=== PATIENT | male | born 1965 | race Caucasian/White ===

== ENCOUNTER 2024-09-30 17:18 | Outpatient (CLI) | payer SELFPAY ==
--- NOTE | ~2024-09-30 | XR_ITS ---
HISTORY: M19.012 - Primary osteoarthritis, left shoulder COMPARISON: 03/18/2024 TECHNIQUE: 4 views of the left shoulder were performed FINDINGS: No acute fracture. Significant joint space narrowing and sclerosis is identified within the glenohumeral and acromioclav icular joints. Rounded foci of increased density are identified within the mediastinum, at the level of the right hi lum, possibly calcified lymph nodes. The remainder of the visualized portion of the adjacent chest is unremarkable. The humeral head is well seated within the glenoid fossa. IMPRESSION: Significant degenerative disease, without acute fracture or anterior dislocation. Reviewed, dictated and finalized at location A. WIRE DRAWER IMPRESSION: Significant degenerative disease, without acute fracture or anterior dislocatio n.
== END 2024-09-30 17:19 | disposition home or self-care (01) ==
PROVIDERS: Visit Provider Orthopaedic Surgery
DX: M19.012 Primary osteoarthritis, left shoulder (principal)
CPT/HCPCS: 73030

== ENCOUNTER 2025-02-17 10:04 | Outpatient (CLI) | payer SELFPAY ==
[2025-02-17 11:16] LABS: Basophils Absolute Auto 0.1 K/mm3 (0.0-0.1); Basophils Percent Auto 0.7 % (0.2-1.2); Eosinophils Absolute Auto 0.2 K/mm3 (0-0.3); Eosinophils Percent Auto 3.3 % (0-4.4); Hematocrit 44.7 % (42.0-52.0); Hemoglobin 14.4 g/dL (14.0-18.0); Immature Granulocyte Absolute 0.03 K/mm3 (0.00-0.031); Immature Granulocyte Percent A 0.4 % (0-0.5); Lymphocytes Absolute Auto 1.76 K/mm3 (0.9-3.2); Lymphocytes Percent Auto 24.2 % (18.3-44.2); Mean Corpuscular HGB Conc 32.2 g/dl (32-36); Mean Corpuscular Hemoglobin 29.3 pg (26-34); Mean Platelet Volume 10.2 fl (7.4-10.4); Monocytes Absolute Auto 0.7 K/mm3 (0.1-0.6); Neutrophils Absolute Auto 4.5 K/mm3 (1.3-6.7); Neutrophils Percent Auto 62.4 % (45.5-73.1); Platelet Count Result 326 k/mm3 (150-375); Red Blood Count 4.91 M/mm3 (4.6-6.20); Red Cell Distribution Width 13.7 % (11.5-14.5); White Blood Count 7.3 K/mm3 (4.5-10.0)
--- OUTSIDE RECORDS SUMMARY | 2025-02-17 11:24 | XMS_ITS | Clinical Summary ---
Author Organization [facility] Address [address] [place] [address] Care Team Providers Care Paper Sheeter Name Role Phone Oscar Dsouza MD Primary Care Provider +1- [phone] Allergies Active Allergy Reactions Criticality Noted Date Comments Latex Unknown 07/20/2024 Medications lisinopril (PRINIVIL) 10 MG tablet Take 1 tablet (10 mg total) by mouth daily. Active rosuvastatin (CRESTOR) 5 MG tablet Take 1 tablet (5 mg total) by mouth nightly at bedtime. Active metoprolol succinate ER (TOPROL-XL) 25 MG 24 hr tablet Take 0.5 tablets (12.5 mg total) by mouth 2 (two) times a day. Active Active Problems Problem Noted Date Diagnosed Date Palpitations Essential (primary) hypertension Family History Medical History Relation Comments CABG Father [place] Father No Known Problems Mother Relation Status Comments Father Mother Social History Tobacco Use Types Packs/Day Years Used Date Smoking Tobacco: Never Smokeless Tobacco: Never Tobacco Cessation:Counseling Given: Not Answered Alcohol Use Standard Drinks/Week Comments Never 0 (1 standard drink = 0.6 oz pur e alcohol) Sex and Gender Information Value Date Recorded Sex Assigned at Not on file Legal Sex Male 7:33 PM CDT Gender Identity Not on file Sexual Orientation Not on file Last Filed Vital Signs Vital Sign Reading Time Taken Comments Blood Pressure 132/80 07/23/2024 10:09 AM CDT Pulse 78 07/23/2024 10:09 AM CDT Temperature - - Respiratory Rate - - Oxygen Saturation 98% 07/23/2024 10:09 AM CDT Inhaled Oxygen Concentration - - Weight 102.5 kg (226 lb) 07/23/2024 10:09 AM CDT Height 190.5 cm (6' 3 ) 07/23/2024 10:09 AM CDT Body Mass Index 28.25 07/23/2024 10:09 AM CDT Plan of Treatment Upcoming Encounters Date Type Department Care Team (Late st Contact Info) Description 07/22/2025 9:45 AM CDT Office Visit [facility], [address] [place], [place] [id number] Sascha De Souza MD Three [facility]. [address] [place], [place] [id number] Health Maintenance Due Date Last Done Comments Colorectal Cancer Screening Colonoscopy (10 Years) 1963 Annual Physical 1966 Hepatitis C 1981 DTaP, Tdap and Td Vaccines ( 1 - Tdap) 1982 Zoster Vaccines (1 of 2) 2013 COVID-19 Vaccine (3 - 2023-2 5 season) 2024 02/28/2021, 01/10/2021 Influenza Adult (#1) 2024 RSV Immunization or 60+ Years (1 - 1-dose 75+ series) 2038 Meningococcal B Vaccine Aged Out No l onger eligible based on patient's age to complete this topic Meningococcal Vaccine Aged Out No janell aldo eligible based on patient's age to complete this topic Pneumococcal Vaccine: Pediatrics (0 to 5 Years) and At-Risk Patients (6 to 64 Years) Aged Out No longer eligible b ased on patient's age to complete this topic RSV Immunizations Under 20 Months Aged Out No longer eligible b ased on patient's age to complete this topic Advance Directives Documents on File Type Date Recorded Patient Machine Tool Rebuilder Expl anation Advance Directives and Livin g Will 10/19/2016 POWER OF HEEL COVER SOFTENER Advance Directives and Livin g Will 10/19/2016 Care Teams Paper Sheeter Relationship Specialty Start Date End Date Oscar Dsouza MD [address] [place] [address] PCP - General FAMILY PRACTICE 06/24/24
[2025-02-17 12:27] LABS: MRSA (PCR) NOT DETECTED (NOT DETECTE)
== END 2025-02-17 10:05 | disposition home or self-care (01) ==
PROVIDERS: Visit Provider Orthopaedic Surgery
DX: M19.012 Primary osteoarthritis, left shoulder (principal)
CPT/HCPCS: 36415; 85025; 87641

== ENCOUNTER 2025-03-18 03:27 | Day surgery (SDC) | payer SELFPAY ==
[2025-02-17 09:27] VITALS: BP 146/90; PULSE 69; RESP 16; TEMP 36.9; O2SAT 100
[2025-02-17 10:28] VITALS: BMI 29.5
--- NOTE | 2025-02-17 10:41 | PC.NURSE ---
Report to the Outpatient Waiting Room, entrance under the green pavilion located off [facility], at time __6:00AM on date ____03/18/25___. Planned Procedure Time: ___7:30AM .? Time changes happen often and if your time is changed the preop area will call you the afternoon before. - You and your visitor will be asked to self-screen and do not enter if you have any COVID symptoms. Please call surgeon if you need to reschedule. - A mask is optional within the hospital at this time. Patients may have clear liquids (water, carbonated beverages, clear teas, apple juice) until 3 hours prior to surgery (4:30AM) with a maximum of 20 ounces. - No food from midnight until time of surgery and no smoking, or chewing tobacco (or any form of nicotine). No chewing gum, candy or mints. Take only the following medications with a SIP of water on the morning of surgery: NONE DO NOT STOP ANY OF YOUR OTHER PRESCRIPTION MEDICATIONS PRIOR TO SURGERY EXCEPT THE FOLLOWING Hold all vitamins and supplements for 3 days per anesthesiologist.- LAST DOSE 03/14/25 Medications to discontinue per physician ___HOLD NSAIDS (DICLOFENAC) 7 DAYS PRE-OP PER DR BAXTER Date to take last dose 03/10/25 Please no make-up, nail korean, hairspray, perfume, deodorant, or body powder the day of surgery.? No jewelry (including any body piercings) or valuables the day of surgery, leave them at home.? Please take a shower or bath the night before, or the morning of, surgery with an antibacterial soap.? Wear comfortable, loose fitting clothing.? - Jewelry must be removed prior to entering the operating room.? Rings and piercings that are not removed may be cut off. - The hospital will not accept responsibility for valuables.? - Please leave all valuables, including medications, at home the day of surgery. If you are going home after surgery, a licensed hazmat cdl driver must drive you home.? - NO public transportation without another adult if you receive anesthesia. - We recommend that an adult stay with you for 24 hours following discharge. - We also recommend that you do not drive, make important decision, drink alcoholic beverages, or take any drugs that were not prescribed by your health care provider for at least 24 hours after your discharge time. Follow any additional instructions given to you from your surgeon. Telephone instructions given to ____PATIENT AND WIFE and asked if any additional questions and then verbalized understanding. Patient advised to call surgeon office or pre surgery nurse liaison [phone] if any additional questions.
[2025-03-18] VITALS (15 sets, daily range): BP systolic 111–156; BP diastolic 71–98; PULSE 80–109; RESP 10–18; TEMP 36–37.1; O2SAT 93–98; BMI 28.3
--- NOTE | ~2025-03-18 | XR_ITS ---
XR shoulder LT min 2V Ordering provider: Chauncey Leblanc MD History: . POST-OP, LEFT TOTAL SHOULDER . Comparison: None. FINDINGS: BONES: No acute fracture or dislocation. JOINT SPACES: The acromioclavicular joint is normal. The glenohumeral joint shows arthroplasty. SOFT TISSUES: Normal. IMPRESSION: No acute osseous abnormality left shoulder. Left glenohumeral arthroplasty. Reviewed, dictated and finalized at location A.
--- OUTSIDE RECORDS SUMMARY | 2025-03-18 03:37 | XMS_ITS | Clinical Summary ---
Author Organization [facility] Address [address] [place] [address] Care Team Providers Care Laborer Carpentry Dock Name Role Phone Oscar Dsouza MD Primary Care Provider +1- [phone] Allergies Active Allergy Reactions Criticality Noted Date [...] History Medical History Relation Comments CABG Father [place] Father No Known Problems Mother Relation Status [...] CDT Office Visit [facility], [address] [place], [place] [phone] Sascha De Souza MD Three [facility]. [address] [place], [place] [phone] Health Maintenance Due Date Last Done Comments Colorectal Cancer Screening Colonoscopy (10 Years) 1963 Annual Physical 1966 Hepatitis C 1981 DTaP, Tdap and Td Vaccines ( 1 - Tdap) 1982 Pneumococcal Vaccine: 50+ Years (1 of 1 - PCV) 2013 Zoster Vaccines (1 of 2) 2013 COVID-19 Vaccine (3 - 2023-2 5 season) 2024 02/28/2021, 01/10/2021 RSV Immunization or 60+ Years (1 - [...] Documents on File Type Date Recorded Patient Interactive Graphic Designer Expl anation Advance Directives and Livin g Will 10/19/2016 POWER OF RUBBER WORKER Advance Directives and Livin g Will 10/19/2016 Care Teams Laborer Carpentry Dock Relationship Specialty Start Date End Date Oscar Dsouza MD [address] [facility] [address] [place] [address] PCP - General FAMILY PRACTICE 06/24/24
--- NOTE | 2025-03-18 06:52 | WPDANESEPPF ---
Anes - Initial Pre Proc Eval Procedure: Operation Date: 03/18/25 07:30 Proposed Procedures p Left Anatomic Total Shoulder Arthroplasty - Chauncey Leblanc MD Date/Time: 03/18/25 06:52 Surgeon: Chauncey Leblanc MD Pre Op Diagnosis: primary OA left shoulder Patient Data Age: 59 Gender: M Height: 1.91 m Weight: 107 kg Last Vital Signs Temp 36.9 C 02/17/25 09:27 Pulse 69 02/17/25 09:27 Resp 16 02/17/25 09:27 BP 146/90 H 02/17/25 09:27 Pulse Ox 100 02/17/25 09:27 O2 Del Method Room Air 02/17/25 09:27 Allergies Allergy/AdvReac Type Severity Reaction Status Date / Time Latex, Natural Rubber Allergy Unknown RASH, Verified 03/18/25 06:45 IRRITATED THROAT Home Medications ?Medication ?Instructions ?Recorded ?Confirmed ?Type lisinopril 10 mg tablet 10 mg PO BID 02/20/24 03/18/25 History RENAVIVE 1 cap PO DAILY 02/17/25 02/18/25 History SUPER BEETS 1 cap PO DAILY 02/17/25 03/18/25 History diclofenac sodium 1 % topical gel 4 g topical BID PRN pain 02/17/25 02/18/25 History (Voltaren Arthritis Pain) metoprolol succinate 25 mg 25 mg PO HS 02/17/25 03/18/25 History tablet,extended release 24 hr rosuvastatin 5 mg tablet 5 mg PO HS 02/17/25 03/18/25 History saw palmetto 500 mg capsule 500 mg PO DAILY 02/17/25 03/18/25 History Patient hx anesthesia problems: none Family hx anesthesia problems: none Results Review: All pre-operative results and documents have been reviewed as part of the pre-operative evaluation. [facility] Past Medical History Medical History History of postoperative nausea and vomiting Hyperlipemia Ureteral stone Hypertension Surgical History Surgical History History of laparoscopic cholecystectomy (~10/19/16) History of arthroscopy of right knee (~2004) History of lithotripsy ECSW Lithotripsy w/Ureteral Stent Placement Family History Family History Father Coronary artery disease Social History Social History Smoking status: Never smoker Alcohol intake: never Substance use: never Do You Feel Safe in your Home?: Yes Lack of Transportation: No Lack of Food: Never True Current Housing: I Have Housing Concerned About Future Housing: No Difficulty Paying Gas/Electric Bills: No Difficulty Paying for Meds: No Currently Unemployed: No Education: Bachelor's Degree Difficulty w/ Childcare or Family Care: No Living arrangements: with family Additional living arrangements comments: Spiritual care concerns: No Anes - Eval Final PreProcedure Day of Procedure 03/18/25 06:52 Patient weight: overweight Heart: regular rate and rhythm Lungs: clear to auscultation Airway: Mallampati scale class II Neurological: alert and oriented Last oral intake: >/= 8 hours ASA classification: II Emergent: no Anesthetic plan: proceed Anesthesia type and monitoring: general ETT and standard monitoring Results Review: All pre-operative results and documents have been reviewed as part of the pre-operative evaluation. Informed Consent: The patient's anesthetic plan and its attendant risks and benefits were discussed with the patient/family/POA. Questions were solicited and answers provided to the satisfaction of the patient/family/POA.
--- NOTE | 2025-03-18 06:59 | WPDHPUPDATE1 ---
History and Physical Update Update Date/Time: 03/18/25 06:59 History and Physical has been reviewed, including an updated exam of the patient. There are NO changes in the patient's condition. Risks, benefits, and alternatives have been discussed and questions answered. Patient agrees to proceed with procedure.
[2025-03-18] MEDS: LACTATED RINGERS 1,000 ML 30 ML IV CONT ×2 (07:12→10:55)
[2025-03-18] MEDS: ACETAMINOPHEN 500 MG TABLET 1000 MG PO (07:12)
[2025-03-18] MEDS: TRANEXAMIC ACID 1,000MG/ISO100 1,000 MG/100 ML BAG 200 MG IVPB (07:12)
[2025-03-18] MEDS: SCOPOLAMINE 1 MG PATCH 1 PATCH TRANSDERM (07:21)
--- NOTE | 2025-03-18 07:28 | WPDANESPNB ---
Anes - Peripheral Nerve Block Date/Time: 03/18/25 07:28 I have discussed with the patient/family/POA the placement of a peripheral nerve block for post-operative pain management, including associated risks, benefits, complications, and side effects. Alternative methods of post-operative analgesia were detailed. Questions were solicited and answers provided to the satisfaction of the patient/family/POA. Time-Out: A pre-procedural Time-Out was completed immediately before starting the procedure and confirmed: Patient Identification, Site, Procedure, Patient Position and the Availability of Requisite Equipment. Clinical Indications: Acute post-operative pain management requested by the operative surgeon. Nerve Block Insertion Note Anes-nerve block: interscalene left Patient position: supine Skin prep: chlorhexidine Needle: 22 gauge, stimulating, insulated echogenic needle. Needle length: 50 mm Technique: ultrasound Injectate: bupivacaine 0.5% with epi 5 mcg/ml (30cc no epi) Observations: tolerated well Complications: none Procedure start time:: 714 Procedure end time:: 724
[2025-03-18] MEDS: ceFAZolin 2 GM/D5W 50 ML 2 GM/50 ML BAG IVPB ×3 (07:30→23:11)
[2025-03-18] MEDS: SODIUM CHLORIDE 0.9% IV 37.7 ML, MORPHINE SULFATE INJ (*CRX) 2 MG, ROPivacaine HCL 1% 2... INFILTRATE (08:26)
[2025-03-18] MEDS: VANCOMYCIN HCL 1,000 MG VIAL 1000 MG TOPICAL (08:52)
--- NOTE | 2025-03-18 10:19 | P.OP_ITS ---
Procedure Note - Detailed Date of Procedure 03/18/25 Pre-op Diagnosis Primary OA left shoulder Post-op Diagnosis Same Procedure Performed Anatomic total shoulder arthroplasty, left. Surgeon Chauncey Leblanc MD Wholesale Loan Processor Eleanor Nixon PA-C Anesthesia General Findings Stemless arthroplasty with inset glenoid. Excellent bone quality. No contracture. Sized line to line with the 48mm x 18mm for optimum soft tissue tension without instability (the 46 was markedly lax). The lesser tuberosity osteotomy was repaired with vazquez bone tunnel suture repair. The biceps was tenodesed to the pectoralis and proximal soft tissue. There was no significant glenoid wear. The inset glenoid component was placed slightly superior, and with subtle declination, where imaging and anatomy indicated ideal humeral head contact. Description of Procedure Preoperative antibiotics were given. An interscalene block placed in the holding area. The patient was brought to the operating room and a general anesthetic was administered. He was carefully placed in the chair position. Head and neck, and bony prominences were carefully padded and positioned. The shoulder was prepped and draped in the usual sterile fashion. A longitudinal incision was created over the deltopectoral interval. The cephalic vein was identified and protected. It was retracted medially. The biceps was released and later tenodesed to the pectoralis tendon.The upper border of the pectoralis tendon was not released. A lesser tuberosity osteotomy was created with osteotomes. It was tagged for later repair. The inferior capsule was exposed and the humeral head was delivered into the wound. An anatomic head cut was taken utilizing the x-ray internal alignment jig. The cut protector was placed and attention was turned to the glenoid. For both humeral ligament was released. The anterior capsule partially excised superiorly and released inferiorly. The glenoid was excised along with the biceps. The capsule was released inferiorly including the triceps attachment. Posterior capsular release was not performed due to the lack of contracture. Anatomic landmarks on the glenoid were identified and the drill guide was placed slightly superior to match the anticipated humeral articulating area. The guide pin was placed followed by the one-step reaming to approximately 2-3 mm depth. The superior and inferior drill was used for the pegs. The bone was irrigated and prepared. The real component was cemented into position. Excess cement was carefully removed. Attention was turned back to the humerus. The opening reamer was placed followed by the 0 broach. Trialing was performed. The 46 felt very loose and appeared slightly undersized. The lesser tuberosity osteotomy was drilled 4 times and a Montanez suture Passer was used to pass a #2 Ethibond suture shuttle. The real implant was inserted with excellent Press-Fit. Four #5 Ethibond modified Juan-Sonny sutures from the lesser tuberosity osteotomy were shuttled laterally. The osteotomy was returned to its anatomic position and secured. Supplemental #1 Vicryl suture was placed in the rotator interval laterally. The wound was irrigated. 1 g of vancomycin power was introduced into the wound. The deltopectoral interval was reapproximated with 2-0 Vicryl suture and the remaining skin 2-0 and 3-0 Stratafix suture. Steri-Strips were placed on the skin with a Mepilex bandage. Sling was applied and the patient extubated. An additional pain relieving cocktail was placed in the periarticular tissues during the procedure. Implants Shoulder innovations stemless humeral implant size 0. 48 x 18 mm humeral head. 24 mm diameter circular in line peg inset glenoid component. One batch of quick set antibiotic cement. Estimated Blood Loss 200 Drains No Packing No Pathology None sent Complications No immediate complications Condition Stable Disposition PACU [facility] Billing Surgery - Charge Forward: Surgery Billing
--- NOTE | 2025-03-18 12:35 | ADMGEN ---
This patient, Brandt Pedersen, was admitted to Medical Room 250-01. Patient/family oriented to hospital policies and general routines including ID bracelet, bed and alarms, visiting hours, pain management, procedures, bathroom and other care routines, personal items, smoking policy, room service/diet, and visiting hours. Information on how to activate the Rapid Response Team has been discussed. Patient/Family are encouraged to report perceived risks to care and to ask questions if they do not understand what they are told or what they should do.
[2025-03-18] MEDS: ACETAMINOPHEN 325 MG TABLET 650 MG PO ×3 (12:59→23:14)
[2025-03-18] MEDS: MELOXICAM 7.5 MG TABLET PO (17:04)
[2025-03-18] MEDS: ASPIRIN 81 MG ENTERIC TABLET PO (20:51)
[2025-03-18] MEDS: ROSUVASTATIN 5 MG TABLET PO (20:52)
[2025-03-18] MEDS: METOPROLOL SUCCINATE EXT REL 25 MG TABCR PO (20:52)
[2025-03-18] MEDS: lisinopriL 10 MG TABLET PO (20:52)
[2025-03-18] MEDS: FAMOTIDINE 20 MG TABLET PO (20:53)
[2025-03-19 02:12] VITALS: BP 134/78; PULSE 94; RESP 18; TEMP 37; O2SAT 95
[2025-03-19 05:14] LABS: Basophils Percent Auto 0.2 % (0.2-1.2); Eosinophils Percent Auto 0.2 % (0-4.4); Hematocrit 38.6 % (42.0-52.0); Hemoglobin 12.7 g/dL (14.0-18.0); Lymphocytes Absolute Auto 1.18 K/mm3 (0.9-3.2); Lymphocytes Percent Auto 5.9 % (18.3-44.2); Mean Corpuscular HGB Conc 32.9 g/dl (32-36); Mean Corpuscular Hemoglobin 29.7 pg (26-34); Mean Corpuscular Volume 90.2 fl (80-100); Monocytes Absolute Auto 1.3 K/mm3 (0.1-0.6); Monocytes Percent Auto 6.5 % (2.6-8.5); Neutrophils Absolute Auto 17.2 K/mm3 (1.3-6.7); Neutrophils Percent Auto 86.2 % (45.5-73.1); Platelet Count Result 310 k/mm3 (150-375); Red Blood Count 4.28 M/mm3 (4.6-6.20); Red Cell Distribution Width 14.2 % (11.5-14.5)
[2025-03-19 05:25] LABS: Anion Gap 8 mmol/L (4-12); Blood Urea Nitrogen 16 mg/dL (9-20); Carbon Dioxide 23 mmol/L (22-30); Chloride 107 mmol/L (98-107); Estimated CRCL calculation 84 ml/min; Estimated Glomerular Filt Rate > 60; Glucose 132 mg/dL (65-110); Potassium 4.6 mmol/L (3.4-5.0); Sodium 138 mmol/L (137-145)
[2025-03-19] MEDS: ACETAMINOPHEN 325 MG TABLET 650 MG PO ×2 (06:00→11:41)
[2025-03-19] MEDS: ceFAZolin 2 GM/D5W 50 ML 2 GM/50 ML BAG IVPB (06:03)
[2025-03-19 06:12] VITALS: BP 121/79; PULSE 78; RESP 20; TEMP 36.8; O2SAT 98
[2025-03-19 07:57] VITALS: BP 132/87; PULSE 66; RESP 16; TEMP 36.6; O2SAT 100
[2025-03-19] MEDS: lisinopriL 10 MG TABLET PO (08:42)
[2025-03-19] MEDS: FAMOTIDINE 20 MG TABLET PO (08:42)
[2025-03-19] MEDS: MELOXICAM 7.5 MG TABLET PO (08:42)
[2025-03-19] MEDS: SENNA/DOCUSATE SODIUM TABLET 2 TAB PO (08:42)
[2025-03-19] MEDS: ASPIRIN 81 MG ENTERIC TABLET PO (08:43)
[2025-03-19 10:10] VITALS: BP 124/86; PULSE 76; RESP 18; TEMP 36.8; O2SAT 99
== END 2025-03-19 13:07 | disposition home or self-care (01) ==
LOC: ANHSURGERY 07:14 → ANH2MED 12:45
PROVIDERS: Physician Assistant Surgical; PCP Family Medicine; Visit Provider Orthopaedic Surgery
PROC: (CPT 23472; principal; 2025-03-18 07:30)
DX: M19.012 Primary osteoarthritis, left shoulder (principal); G89.18 Other acute postprocedural pain; I10 Essential (primary) hypertension; E78.5 Hyperlipidemia, unspecified
CPT/HCPCS: 23472; 64415; 36415; 73030; 80048; 85025; 86850; 86900; 86901; 97110; 97161; 97165; 97530; 97535; A4565; A9270; C1713; C1776; J0171; J0690; J1100; J1885; J2250; J2270; J2405; J2704; J2795; J3010; J3370; J7120

== ENCOUNTER 2025-03-21 14:43 | Emergency (ER) | payer SELFPAY ==
--- OUTSIDE RECORDS SUMMARY | 2025-03-21 14:46 | XMS_ITS | Clinical Summary ---
Author Organization [facility] Address [address] [place] [address] Care Team Providers Care Aircrewman Name Role Phone Oscar Dsouza MD Primary Care Provider +1- [phone] Allergies Active Allergy Reactions Criticality Noted Date [...] History Medical History Relation Comments CABG Father [place] Father No Known Problems Mother Relation Status [...] CDT Office Visit [facility], [address] [place], [place] [phone] Sascha De Souza MD Three [facility]. [address] [place], [place] [phone] Health Maintenance Due Date Last Done Comments [...] Documents on File Type Date Recorded Patient Assembler Molded Frames Expl anation Advance Directives and Livin g Will 10/19/2016 POWER OF DERRICK BUILDER Advance Directives and Livin g Will 10/19/2016 Care Teams Aircrewman Relationship Specialty Start Date End Date Oscar Dsouza MD [address] [facility] [address] [place] [address] PCP - General FAMILY PRACTICE 06/24/24
[2025-03-21 14:59] VITALS: BP 128/82; PULSE 102; RESP 18; TEMP 36.5; O2SAT 97
--- OUTSIDE RECORDS SUMMARY | 2025-03-21 15:33 | XMS_ITS | Clinical Summary ---
Author Organization [facility] Address [address] [place] [address] Care Team Providers Care Game Engineer Name Role Phone Oscar Dsouza MD Primary Care Provider +1- [phone] Allergies Active Allergy Reactions Criticality Noted Date [...] History Medical History Relation Comments CABG Father [place] Father No Known Problems Mother Relation Status [...] CDT Office Visit [facility], [address] [place], [place] [phone] Sascha De Souza MD Three [facility]. [address] [place], [place] [phone] Health Maintenance Due Date Last Done Comments [...] Documents on File Type Date Recorded Patient Supervisor Sulfuric Acid Plant Expl anation Advance Directives and Livin g Will 10/19/2016 POWER OF NUTRITIONAL SERVICES DIRECTOR Advance Directives and Livin g Will 10/19/2016 Care Teams Game Engineer Relationship Specialty Start Date End Date Oscar Dsouza MD [address] [facility] [address] [place] [address] PCP - General FAMILY PRACTICE 06/24/24
--- NOTE | 2025-03-21 16:18 | ED_ITS ---
HPI - General Adult General Chief complaint: Skin/Abscess/Foreign Body Stated complaint: rash on arm Time Seen by Provider: 03/21/25 15:24 History of Present Illness HPI narrative: 59-year-old male presents to the emergency department for evaluation for rash to left shoulder after shoulder surgery on 03/18. Patient noticed that he began having this edema associated with the regions of his skin that had been cleansed with the surgical prep. Patient did shower an attempt to clean the skin has good as possible. Patient was attempting to get hold the primary care physician and the orthopedic surgeon but was unable to. Patient presents emergency department for evaluation. Patient denies any chest pain or shortness of breath. Patient denies any difficulty breathing or swallowing. Related Data Home Medications ?Medication ?Instructions ?Recorded ?Confirmed ?Last Taken ?Type lisinopril 10 mg tablet 10 mg PO BID 02/20/24 03/18/25 03/17/25 History RENAVIVE 1 cap PO DAILY 02/17/25 02/18/25 Unknown History SUPER BEETS 1 cap PO DAILY 02/17/25 03/18/25 03/15/25 History diclofenac sodium 1 % topical gel 4 g topical BID PRN pain 02/17/25 02/18/25 Unknown History (Voltaren Arthritis Pain) metoprolol succinate 25 mg 25 mg PO HS 02/17/25 03/18/25 03/17/25 History tablet,extended release 24 hr rosuvastatin 5 mg tablet 5 mg PO HS 02/17/25 03/18/25 03/17/25 History saw palmetto 500 mg capsule 500 mg PO DAILY 02/17/25 03/18/25 03/15/25 History Allergies Allergy/AdvReac Type Severity Reaction Status Date / Time chlorhexidine (From Allergy Severe Rash Verified 03/22/25 09:09 ChloraPrep Clear) isopropyl alcohol (From Allergy Severe Rash Verified 03/22/25 09:09 ChloraPrep Clear) Latex, Natural Rubber Allergy Unknown RASH, Verified 03/18/25 14:02 IRRITATED THROAT Review of Systems Review of Systems: All systems reviewed & are unremarkable except as noted in HPI and below PMFSH Past Medical History Medical History History of postoperative nausea and vomiting Hyperlipemia Ureteral stone Hypertension Surgical History Surgical History History of laparoscopic cholecystectomy (~10/19/16) History of arthroscopy of right knee (~2004) History of lithotripsy ECSW Lithotripsy w/Ureteral Stent Placement Family History Family History Father Coronary artery disease Social History Social History Smoking status: Never smoker Alcohol intake: never Substance use: never Substance use type: does not use Do You Feel Safe in your Home?: Yes Lack of Transportation: No Lack of Food: Never True Current Housing: I Have Housing Concerned About Future Housing: No Difficulty Paying Gas/Electric Bills: No Difficulty Paying for Meds: No Currently Unemployed: No Education: Bachelor's Degree Difficulty w/ Childcare or Family Care: No Living arrangements: with family Additional living arrangements comments: Spiritual care concerns: No Exam Narrative: APPEARANCE: Well appearing, no pain, no distress, well-nourished. HEAD: normocephalic, atraumatic. EYES: PERRLA/EOMI, conjunctivae clear. NOSE: Normal no drainage EARS:TMS clear with good light reflex. THROAT: Pharynx clear, no exudate. NECK: Supple. No adenopathy, no masses. RESPIRATORY: Airway patent, respirations nonlabored. Clear to auscultation bilaterally, no rales, rhonchi, wheezing. CARDIOVASCULAR: Regular rate and rhythm without murmurs rubs or gallops. ABDOMINAL: Soft, nontender, nondistended, normal bowel sounds MUSCULOSKELETAL: Moves all extremities. Strength/ROM intact, No edema, No calf tenderness. NEURO: Alert. Cranial nerves II through XII intact. Good gait. Good coordination SKIN: Erythema with some minor blisters suggestive of contact dermatitis at area of ChloraPrep Course Vital Signs Vital signs: Vital Signs Temperature 97.7 F 03/21/25 14:59 Pulse Rate 102 H 03/21/25 14:59 Respiratory Rate 18 03/21/25 14:59 Blood Pressure 128/82 03/21/25 14:59 Pulse Oximetry 97 03/21/25 14:59 Temperature 97.7 F 03/21/25 14:59 Pulse Rate 102 H 03/21/25 14:59 Respiratory Rate 18 03/21/25 14:59 Blood Pressure 128/82 03/21/25 14:59 Pulse Oximetry 97 03/21/25 14:59 Medical Decision Making [facility] Narrative Medical decision making narrative: 59-year-old male presents emergency department for evaluation for suspected allergic reaction to the ChloraPrep on his left shoulder. Patient was started on a short course of steroids and advised to take Benadryl for itching. Patient was encouraged to have follow-up as scheduled it is primary care physician. Differential Diagnosis Differential Diagnosis: Allergic reaction, contact dermatitis Vital Signs Vital Signs: Vital Signs Temperature 97.7 F 03/21/25 14:59 Pulse Rate 102 H 03/21/25 14:59 Respiratory Rate 18 03/21/25 14:59 Blood Pressure 128/82 03/21/25 14:59 Pulse Oximetry 97 03/21/25 14:59 Temperature 97.7 F 03/21/25 14:59 Pulse Rate 102 H 03/21/25 14:59 Respiratory Rate 18 03/21/25 14:59 Blood Pressure 128/82 03/21/25 14:59 Pulse Oximetry 97 03/21/25 14:59 Discharge Plan Discharge Clinical Impression: Contact dermatitis Patient Disposition: Home Condition: Stable Instructions: Antibiotic Form, Contact Dermatitis (ED) Additional Instructions: Prednisone as directed for the next 5 days. Benadryl as needed for itching. Continue to have close follow-up with your primary care physician tomorrow for a wound check. Have close follow-up with Orthopedics. Patient Language: Mozambican Prescriptions: New prednisone 50 mg tablet 50 mg PO DAILY 5 Days Qty: 5 0RF No Action lisinopril 10 mg tablet 10 mg PO BID metoprolol succinate 25 mg tablet extended release 24 hr 25 mg PO HS rosuvastatin 5 mg tablet 5 mg PO HS SUPER BEETS 1 cap PO DAILY saw palmetto 500 mg capsule 500 mg PO DAILY RENAVIVE 1 cap PO DAILY diclofenac sodium [Voltaren Arthritis Pain] 1 % gel 4 g topical BID PRN (Reason: pain) Rx Instructions: apply to single knee, ankle, foot; for foot includes sole/toes/top of foot meloxicam 15 mg tablet 15 mg PO DAILY Qty: 30 0RF Rx Instructions: Cut in half. Take 1/2 in morning and 1/2 at night. Take with food. Stop if stomach upset. aspirin 81 mg tablet,delayed release (DR/EC) 81 mg PO BID 14 Days Qty: 28 0RF oxycodone-acetaminophen 5-325 mg tablet 1 - 2 tablet PO Q4-6H PRN (Reason: pain) Qty: 30 0RF doxycycline hyclate 50 mg capsule 50 mg PO BID 14 Days Qty: 28 0RF Follow-up/Referrals: Meet,Oscar Priest MD [Primary Care Provider] -
[2025-03-21] MEDS: predniSONE 20 MG TABLET 40 MG PO (16:37)
[2025-03-21] MEDS: diphenhydrAMINE HCl CAP 25 MG CAPSULE PO (16:37)
== END 2025-03-21 16:42 | disposition home or self-care (01) ==
PROVIDERS: Emergency Provider Emergency Medicine; PCP Family Medicine
DX: L25.9 Unspecified contact dermatitis, unspecified cause (principal); I10 Essential (primary) hypertension; E78.5 Hyperlipidemia, unspecified; Z87.442 Personal history of urinary calculi; Z90.49 Acquired absence of other specified parts of digestive tract; Z79.82 Long term (current) use of aspirin; Z79.899 Other long term (current) drug therapy
CPT/HCPCS: 99283; A9270; J7512

== ENCOUNTER 2025-04-09 13:14 | Outpatient (CLI) | payer SELFPAY ==
--- NOTE | ~2025-04-09 | XR_ITS ---
XR shoulder LT min 2V Ordering provider: Chauncey Leblanc MD History: . Z96.612 - Presence of left artificial shoulder joint . Comparison: March 18, 2025 FINDINGS: BONES: No acute fracture or dislocation. JOINT SPACES: The acromioclavicular joint is normal. The glenohumeral joint shows shoulder arthroplas ty. SOFT TISSUES: Normal. IMPRESSION: No acute osseous abnormality left shoulder. Left shoulder arthroplasty. Reviewed, dictated and finalized at location A.
--- OUTSIDE RECORDS SUMMARY | 2025-04-09 13:34 | XMS_ITS | Clinical Summary ---
Author Organization [facility] Address [address] [place] [address] Care Team Providers Care Operational Communication Chief Name Role Phone Oscar Dsouza MD Primary Care Provider [phone] Allergies Active Allergy Reactions Criticality Noted Date [...] History Medical History Relation Comments CABG Father [place] Father No Known Problems Mother Relation Status [...] Care Team (Late st Contact Info) Description 08/05/2025 9:45 AM CDT Office Visit [facility], [address] [place], [place] [id number] Sascha De Souza MD [facility]. 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
== END 2025-04-09 13:15 | disposition home or self-care (01) ==
PROVIDERS: PCP Family Medicine; Visit Provider Orthopaedic Surgery
DX: Z96.612 Presence of left artificial shoulder joint (principal)
CPT/HCPCS: 73030